=== PATIENT | female | born 1955 | race Caucasian/White ===

== ENCOUNTER → 2016-09-21 | Outpatient (CLI) | payer OTHER ==
[~2016-09-21] MED LIST: LOSA25TA34 PO; RANI150T7 PO
--- NOTE | 2016-09-21 10:25 | STEVAL ---
Eval Subjective and History Date/Time of Eval DATE: 09/21/16 TIME: 09:51 Medical Diagnosis MODIFIED BARIUM SWALLOW STUDY FOR R13.19 Treatment Order: Assessment, Dev./Imp. 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 REPORTS SINCE THEN SHE GETS FOOD (SPECIFICALLY BREADS & MEATS) LODGED AT THE POINT OF HER BREASTBONE. SHE STATES SHE HAS TO BE CAREFUL WITH MASTICATION AND IF IT DOES GET STUCK, SHE HAS TO WAIT FOR IT TO GO DOWN. Education Comment STATE DIRECTOR educated patient on reasoning for evaluation. Patient was agreeable to evaluation. Subjective and History Comment: AMARILYS TRANSFERRED HERSELF BACK TO THE IMAGING ROOM. SHE REPORTS THAT SHE RECENTLY HAS BEEN HAVING BOUTS OF VERTIGO. SHE TRANSFERRED HERSELF INTO THE HAUSTED CHAIR WHERE SHE SAT FOR THE STUDY AT 90 DEGREES. SHE WAS WITHOUT ACUTE C/O PAIN OR FATIGUE. SHE WAS PLEASANTLY COOPERATIVE AND AGREEABLE TO LINE HELPER CLINICIAN BEING PRESENT. Modified Barium Swallow Lateral View Oral Phase : Lateral View Food Presentation: Thin Liquid via Spoon, Thin Liquid via Straw , Solid- Amilcar Cracker, Syrup liquid via cup, Pudding via spoon Number Presentations Lat View: 3 Labial Closure: No Impairment (WFL) Bolus Formation Pooling L/R: No Impairment (WFL) Bolus Formation Under Tongue: No Impairment (WFL) Bolus Formation Scattered Loss: No Impairment (WFL) Mastication Rotary Chew: No Impairment (WFL) Mastication Munching: No Impairment (WFL) Mastication Laterization: No Impairment (WFL) A/P Lingual Propulsion Spills: No Impairment (WFL) A/P Lingual Propulsion Delay: No Impairment (WFL) Lingual Movement: No Impairment (WFL) Residue Clearing: No Impairment (WFL) Premature Swallow: No Impairment (WFL) Other Oral Phase Observations: PATIENTS ORAL PHASE OF SWALLOW FUNCTIONAL. PATIENT DEMONSTRATED APPROPRIATE MASTICATION AND FORMATION OF BOLUS INTO A COHESIVE UNIT FOR ORAL TRANSIT. SHE EXHIBITED NO PREMATURE SWALLOW OR REDUCED LINGUAL MOVEMENT. SHE HAD FAIR ORAL CLEARING WITH NO RESIDUAL. Swallow Response Delay: No Impairment (WFL) Base of Tongue: No Impairment (WFL) Epiglottic Coverage: No Impairment (WFL) Laryngeal Elevation: Minimal Impairment Vallecular Retention Clearing: No Impairment (WFL) Pharyn.Wall Residue Clearing: No Impairment (WFL) Pyriform Sinus Clearing: No Impairment (WFL) Other Pharyngeal Phase Observ.: PATIENT WITHOUT ASPIRATION OR PENETRATION DURING THIS STUDY. PATIENT WITH PROMPT SWALLOW RESPONSE ON ALL CONSISTENCIES. PATIENT DEMONSTRATED FUNCTIONAL BASE OF TONGUE MOVEMENT. SHE HAD NO IMPAIRMENT WITH EPIGLOTTIC INVERSION. TRACE AMOUNTS OF RESIDUE WERE NOTED IN THE VALLECULAE WITH THICKER CONSISTENCIES BUT CLEARED WITH SECONDARY SWALLOW. A/P View Food Presentation: Thin Liquid via Straw, Solid- Amilcar Cracker, Syrup liquid via straw, Pudding via spoon A/P View Vocal Cord Function: Good Assessment/Plan of Care Speech Therapy Impressions: NO ASPIRATION OR PENETRATION APPRECIATED DURING THIS STUDY. PATIENT PRESENTS WITH FUNCTIONAL SWALLOW RESPONSE. ST Treatment Plan: N/A ST Treatment Plan Frequency: N/A Treatment Plan Duration: N/A Plan of Care Comment RECOMMENDATIONS: 1) REGULAR DIET TOLERATED 2) RECOMMEND SMALL BITES WITH MEATS & BREADS, TAKING DRINKS BEFORE AND AFTER 3) MEDICATIONS TOLERATED (WHOLE OR CRUSHED) 4) MAY BENEFIT FROM FURTHER GI TESTING (ESOPHAGRAM) Date of Visit 09/21/16 Time Visit Began: 09:05 Time Visit Ended: 09:29 ST Assess/Plan of Care: ST Treatment Charge: MBSS Minutes of Individual Therapy: 24 GCODE Swallowing: G8996 - current Severity Modifier: CH - 0% Swallowing: G8997 - goal Severity Modifier: CH - 0% Swallowing: G8998 - d/c Severity Modifier: CH - 0% TIMUR DELANEY MS CCC-STATE DIRECTOR Sep 21, 2016 09:54
--- NOTE | 2016-09-21 13:01 | DI ---
Indication:ITS.REASON: R13.19 OTHER DYSPHAGIA Procedure:MODIFIED BAR. SWALLOW STUDY MODIFIED BAR. SWALLOW STUDY: Videofluoroscopy was performed in conjunction with a hobbies and crafts sales representative from speech pathology and a separate report and recommendations will be provided. Varying gradations of barium from thin to solid were administered. There was no aspiration noted with any of the consistencies. On the AP view the bolus showed no obvious preference for either side. Incidentally noted is prominence of the cricopharyngeus muscle, causing a stenosis of approximately 50%. This does not seem to restrict the flow of contrast though could be a source of dysphagia. An esophagram could be performed for further evaluation. Impression: 1. No aspiration. 2. Incidental finding of a prominent cricopharyngeus muscle (bar), which could be a source of dysphagia, as described above. An esophagram could be performed for further evaluation. Please see the speech pathology report for additional details and recommendations. Fluoroscopy dose: 4.16 mGy (Cumulative air kerma) Car Mann RPA/JAMEL performed this under my direct supervision. .
== END ==
LOC: IMA 08:31
PROVIDERS: ATTEND Family Medicine
DX: R13.19 Other dysphagia (principal); R93.3 Abnormal findings on diagnostic imaging of other parts of digestive tract

== ENCOUNTER → 2016-10-20 | Outpatient (CLI) | payer OTHER | LOC: NEU 09:38 | PROVIDERS: ATTEND Psychiatry & Neurology Neurology | DX: G45.4 Transient global amnesia (principal); R94.01 Abnormal electroencephalogram [EEG] | CPT/HCPCS: 95816 ==